=== PATIENT | male | born 1990 | race Caucasian/White ===

== ENCOUNTER 2019-05-06 17:00 | Emergency (ER) | payer BC, OTHER ==
[~2019-05-06] VITALS: Ht 170.2 cm; Wt 104.9 kg
[~2019-05-06 17:00] MED LIST: DOXY100C9 PO; PROM118S4 PO
[2019-05-06 17:19] VITALS: BP_SYST 144; BP_SYST 146; BP_DIAS 101; BP_DIAS 90
--- NOTE | 2019-05-06 19:02 | NUR ---
29 Y/O MALE C/O PERIUMBILICAL PAIN X2 DAYS, 3/10 PAIN NON RADIATING. PT REPORTS HE HAD UMBILICAL HERNIA REPAIR 4 YEARS AGO WITHOUT COMPLICATIONS. BOWEL SOUNDS NORMOACTIVE IN ALL QUADRANTS. DENIES ANY N/V/D. RESP EVEN AND UNLABORED. LUNG SOUNDS CLEAR IN BILAT LOBED. AAOX4. CAP REFILL <3 NO PMH NKA
[2019-05-06 19:03] VITALS: BP 144/90
--- NOTE | 2019-05-06 19:03 | NUR ---
Patient discharged with v/s stable. Written and verbal after care instructions given and explained. Patient verbalized understanding. Ambulatory with steady gait. All questions addressed prior to discharge. Advised to follow up with PMD.
== END 2019-05-06 19:03 | disposition home or self-care (01) ==
LOC: MED 17:00
DX: R10.9 Unspecified abdominal pain (principal); I10 Essential (primary) hypertension; F17.210 Nicotine dependence, cigarettes, uncomplicated; Z87.19 Personal history of other diseases of the digestive system
CPT/HCPCS: 99281